=== PATIENT | male | born 1965 | race Caucasian/White ===

== ENCOUNTER 2018-08-13 16:05 | Emergency (ER) | payer OTHER ==
--- NOTE | 2018-08-13 16:11 | EDPHY ---
H & P Time Seen by Provider: 08/13/18 16:09 HPI/ROS: CHIEF COMPLAINT: Left ankle pain HISTORY OF PRESENT ILLNESS: The patient is a 53-year-old man who comes to the emergency department complaining of left ankle pain. He was outside on the curb when he twisted his ankle inward. He has pain on the lateral aspect of his ankle. No knee pain or foot pain. He denies other injuries. He did fall to the ground but was able to catch himself. Severity: Moderate Modifying factors: None REVIEW OF SYSTEMS: Constitutional: denies: chills, fever, recent illness, recent injury EENTM: denies: blurred vision, double vision, nose congestion Respiratory: denies: cough, shortness of breath Cardiac: denies: chest pain, irregular heart rate, lightheadedness, palpitations Gastrointestinal/Abdominal: denies: abdominal pain, diarrhea, nausea, vomiting, blood streaked stools Genitourinary: denies: dysuria, frequency, hematuria, pain Musculoskeletal: See HPI Skin: denies: lesions, rash, jaundice, bruising Neurological: denies: headache, numbness, paresthesia, tingling, dizziness, weakness Hematologic/Lymphatic: denies: blood clots, easy bleeding, easy bruising Immunologic/allergic: denies: HIV/AIDS, transplant 10 systems reviewed and negative except as noted EXAM: GENERAL: Well-appearing, well-nourished and in no acute distress. HEAD: Atraumatic, normocephalic. EYES: Pupils equal round and reactive to light, extraocular movements intact, sclera anicteric, conjunctiva are normal. ENT: TMs normal, nares patent, oropharynx clear without exudates. Moist mucous membranes. NECK: Normal range of motion, supple without lymphadenopathy or JVD. LUNGS: Breath sounds clear to auscultation bilaterally and equal. No wheezes rales or rhonchi. HEART: Regular rate and rhythm without murmurs, rubs or gallops. ABDOMEN: Soft, nontender, normoactive bowel sounds. No guarding, no rebound. No masses appreciated. BACK: No CVA tenderness, no spinal tenderness, step-offs or deformities EXTREMITIES: Left ankle pain laterally malleolus proximally. No medial pain. No visible swelling. NEUROLOGICAL: Cranial nerves II through XII grossly intact. Normal speech, normal gait. 5/5 strength, normal movement in all extremities, normal sensation , normal reflexes PSYCH: Normal mood, normal affect. SKIN: Warm, dry, normal turgor, no visible rashes or lesions. Source: Patient, EMS Exam Limitations: No limitations - Medical/Surgical History Hx Asthma: No Hx Chronic Respiratory Disease: No Hx Diabetes: No Hx Cardiac Disease: No Hx Renal Disease: No Hx Cirrhosis: No Hx Alcoholism: No Hx HIV/AIDS: No Hx Splenectomy or Spleen Trauma: No Other PMH: anxiety. high cholestrol - Family History Significant Family History: No pertinent family hx - Social History Smoking Status: Never smoked Alcohol Use: Sober Drug Use: None Constitutional: Initial Vital Signs Temperature (C) 36.7 C 08/13/18 16:11 Heart Rate 93 08/13/18 16:11 Respiratory Rate 16 08/13/18 16:11 Blood Pressure 134/90 H 08/13/18 16:11 O2 Sat (%) 96 08/13/18 16:11 O2 Delivery Mode Room Air Allergies/Adverse Reactions: No Known Allergies Allergy (Verified 08/30/14 11:09) Home Medications: Medication Instructions Recorded NK [No Known Home Meds] 08/30/14 Medical Decision Making - Diagnostics Imaging Results: Imaging Impressions Ankle X-Ray 08/13/18 16:08 Impression: Nothing acute identified. Imaging: Discussed imaging studies w/ call center dispatcher Radiologist ED Course/Re-evaluation: 4:50 p.m. We discussed the x-ray results. The patient is relieved. We placed him in an Sourav wrap and [place] boot and encouraged early mobilization. He understands and agrees with this plan. I will have follow up with Orthopedics as needed. Differential Diagnosis: Partial list of the Differential diagnosis considered include but were not limited to; ankle fracture, ankle sprain and although unlikely based on the history and physical exam, I also considered foot fracture, laceration, dislocation. I discussed these differential diagnoses and the plan with the patient as well as the usual and expected course. The patient understands that the diagnosis is provisional and that in medicine we are not always correct and that further workup is often warranted. Usual and customary warnings were given. All of the patient's questions were answered. The patient was instructed to return to the emergency department should the symptoms at all worsen or return, otherwise to followup with the physician as we discussed. Departure - Departure Disposition: Home, Routine, Self-Care Clinical Impression: Left ankle sprain Qualifiers: Encounter type: initial encounter Involved ligament of ankle: unspecified ligament Qualified Code(s): S93.402A - Sprain of unspecified ligament of left ankle, initial encounter Condition: Fair Instructions: Ankle Sprain (ED) Referrals: Patient,NotPresent [Unknown] - As per Instructions Amarjit Wu MD [Medical Doctor] - As per Instructions
[2018-08-13 16:13] VITALS: BP 134/90
== END 2018-08-13 17:17 | disposition home or self-care (01) ==
LOC: EDUNIT#
DX: S93.402A Sprain of unspecified ligament of left ankle, initial encounter (principal); W10.1XXA Fall (on)(from) sidewalk curb, initial encounter; Y92.9 Unspecified place or not applicable
CPT/HCPCS: L4386